=== PATIENT | male | born 1975 | race Caucasian/White ===

== ENCOUNTER → 2018-05-02 | Outpatient (CLI) | payer MEDICAID | LOC: GIMAGING 12:34 → EDSTATUS 15:44 | PROVIDERS: ATTEND Internal Medicine | DX: M53.3 Sacrococcygeal disorders, not elsewhere classified (principal); M54.5 Low back pain; I70.0 Atherosclerosis of aorta | CPT/HCPCS: 72100-PO; 72220-PO ==